=== PATIENT | female | born 1940 | race Caucasian/White ===

== ENCOUNTER 2024-02-09 20:03 | Inpatient (IN) | payer OTHER, BC ==
[2024-02-09 20:25] VITALS: BMI 22.2
[2024-02-09] MEDS ORDERED: ONDANSETRON 4 MG/2 ML VIAL ONE (20:52)
[2024-02-09] MEDS: ONDANSETRON 4 MG/2 ML VIAL IVPUSH ONE (21:08)
[2024-02-09 21:12] LABS: BASO % 0.5 % (0-2.0); EOS % 1.3 % (0-4.5); HEMATOCRIT 41.8 % (32.4-45.2); LYMPH % 9.8 % (8-40); MCH 28.8 pg (25.7-33.7); MCHC 33.4 g/dl (32.0-36.0); MEAN CELL VOLUME 86.4 fl (80-96); MEAN PLT VOLUME 8.6 fl (7.5-11.1); MONO % 7.6 % (3.8-10.2); NEUT % 80.8 % (42.8-82.8); PLATELET COUNT 208 10^3/uL (134-434); RBC 4.84 M/mm3 (3.60-5.2); RDW 15.4 % (11.6-15.6)
[2024-02-09 21:58] LABS: POTASSIUM 3.4 mmol/L (3.5-5.1)
[2024-02-09 22:01] LABS: CALCIUM 9.1 mg/dL (8.5-10.1)
[2024-02-09 22:02] LABS: ALBUMIN 3.8 g/dl (3.4-5.0); BLOOD UREA NITROGEN 18.1 mg/dL (7-18); MAGNESIUM 1.9 mg/dL (1.8-2.4)
[2024-02-09 22:05] LABS: CREATININE 0.8 mg/dL (0.55-1.3)
[2024-02-09 22:06] LABS: BILIRUBIN,TOTAL 1.9 mg/dL (0.2-1)
[2024-02-09 23:36] LABS: EPI CELLS 5 /uL (0-25.1); HYALINE CASTS 0 /uL (0-3.1); URINE APPEARANCE CLEAR; URINE BACTERIA 27 /uL (0-1359); URINE BILIRUBIN NEGATIVE (NEGATIVE); URINE COLOR YELLOW; URINE GLUCOSE (UA) NEGATIVE (NEGATIVE); URINE KETONE NEGATIVE (NEGATIVE); URINE LEUK ESTERASE NEGATIVE (NEGATIVE); URINE NITRITE NEGATIVE (NEGATIVE); URINE PROTEIN 2+ (NEGATIVE); URINE RBC 10 /uL (0-23.9); URINE UROBILINOGEN 0.2 mg/dL (0.2-1.0); URINE WBC 3 /uL (0-25.8)
[2024-02-09] MEDS: SODIUM CHLORIDE 0.9% 500 ML INFUS.BAG IV ONE (23:38)
[2024-02-10] MEDS ORDERED: POTASSIUM CHLORIDE ORAL LIQUID 20 MEQ/15 ML ONE (00:06)
[2024-02-10] MEDS: POTASSIUM CHLORIDE ORAL LIQUID 20 MEQ/15 ML PO ONE (00:19)
[2024-02-10] MEDS: DEXTROSE 5%-WATER - 1,000 ML IV SCH (03:10)
[2024-02-10 06:18] LABS: BASO % 0.2 % (0-2.0); EOS % 0.3 % (0-4.5); HEMATOCRIT 39.6 % (32.4-45.2); HEMOGLOBIN 13.1 GM/dL (10.7-15.3); LYMPH % 10.4 % (8-40); MCH 28.7 pg (25.7-33.7); MCHC 33.1 g/dl (32.0-36.0); MEAN CELL VOLUME 86.9 fl (80-96); MEAN PLT VOLUME 8.7 fl (7.5-11.1); MONO % 9.5 % (3.8-10.2); NEUT % 79.6 % (42.8-82.8); PLATELET COUNT 192 10^3/uL (134-434); RBC 4.56 M/mm3 (3.60-5.2); RDW 15.4 % (11.6-15.6); WHITE BLOOD COUNT 6.1 K/mm3 (4.0-10.0)
[2024-02-10 06:40] LABS: POTASSIUM 3.9 mmol/L (3.5-5.1)
[2024-02-10 06:45] LABS: CALCIUM 8.2 mg/dL (8.5-10.1)
[2024-02-10 06:46] LABS: ALBUMIN 3.2 g/dl (3.4-5.0); BLOOD UREA NITROGEN 13.4 mg/dL (7-18)
[2024-02-10 06:49] LABS: CREATININE 0.7 mg/dL (0.55-1.3)
[2024-02-10 06:50] LABS: TOT PROT 6.2 g/dl (6.4-8.2)
[2024-02-10] MEDS: LOSARTAN POTASSIUM 50 MG TABLET PO SCH (10:05)
[2024-02-10] MEDS: EZETIMIBE 10 MG TABLET (FP) PO SCH (10:05)
[2024-02-10] MEDS: APIXABAN 5 MG TABLET PO SCH (10:05)
[2024-02-10] MEDS ORDERED: APIXABAN 5 MG TABLET ONE (10:07)
[2024-02-10] MEDS ORDERED: LOSARTAN POTASSIUM 50 MG TABLET ONE (10:08)
[2024-02-10] MEDS ORDERED: DEXTROSE 5%-NORMAL SALINE 1,000 ML IV SCH (13:15)
[2024-02-10] MEDS: DEXTROSE 5%-NORMAL SALINE 1,000 ML IV SCH (13:46)
[2024-02-10] MEDS: ONDANSETRON 4 MG/2 ML VIAL IVPUSH PRN (18:10)
[2024-02-10] MEDS: LABETALOL HCL 100 MG TABLET (FP) PO SCH (21:48)
[2024-02-10] MEDS: ATORVASTATIN CA 80 MG TABLET (FP) PO SCH (21:48)
[2024-02-11 07:58] LABS: POTASSIUM 3.4 mmol/L (3.5-5.1)
[2024-02-11 08:00] LABS: BLOOD UREA NITROGEN 10.6 mg/dL (7-18)
[2024-02-11 08:01] LABS: CALCIUM 8.3 mg/dL (8.5-10.1)
[2024-02-11 08:04] LABS: CREATININE 0.8 mg/dL (0.55-1.3)
[2024-02-11 08:05] LABS: TOT PROT 5.6 g/dl (6.4-8.2)
[2024-02-11] MEDS: POTASSIUM CHLORIDE ORAL LIQUID 20 MEQ/15 ML PO ONE (12:22)
[2024-02-11] MEDS: amLODIPine BESYLATE 10 MG TABLET (FP) PO ONE (18:37)
[2024-02-12 08:32] LABS: BLOOD UREA NITROGEN 12.9 mg/dL (7-18); CALCIUM 8.4 mg/dL (8.5-10.1)
[2024-02-12 08:33] LABS: ALBUMIN 3.2 g/dl (3.4-5.0)
[2024-02-12 08:35] LABS: CREATININE 0.8 mg/dL (0.55-1.3)
[2024-02-12 08:37] LABS: BILIRUBIN,TOTAL 1.7 mg/dL (0.2-1); TOT PROT 5.9 g/dl (6.4-8.2)
[2024-02-12 09:01] LABS: BASO % 0.3 % (0-2.0); EOS % 2.6 % (0-4.5); HEMOGLOBIN 13.1 GM/dL (10.7-15.3); LYMPH % 15.7 % (8-40); MCH 29.2 pg (25.7-33.7); MCHC 33.6 g/dl (32.0-36.0); MEAN CELL VOLUME 86.9 fl (80-96); MEAN PLT VOLUME 9.1 fl (7.5-11.1); MONO % 13.1 % (3.8-10.2); NEUT % 68.3 % (42.8-82.8); PLATELET COUNT 184 10^3/uL (134-434); RBC 4.48 M/mm3 (3.60-5.2); RDW 15.5 % (11.6-15.6); WHITE BLOOD COUNT 7.2 K/mm3 (4.0-10.0)
[2024-02-12] MEDS: amLODIPine BESYLATE 5 MG TABLET (FP) PO SCH (09:34)
[2024-02-12] MEDS ORDERED: amLODIPine BESYLATE 10 MG TABLET (FP) PO SCH (10:00)
[2024-02-12] MEDS: DOCUSATE SODIUM 100 MG CAPSULE (FP) PO PRN (23:13)
[2024-02-13] MEDS: POLYETHYLENE GLYCOL (HEALTHYLAX) 3350 17 GM PACKET PO SCH (18:05)
[2024-02-13] MEDS: LABETALOL HCL 100 MG TABLET (FP) PO SCH (20:07)
[2024-02-13] MEDS: SENNOSIDES 8.6MG TABLET (FP) PO ONE (22:45)
[2024-02-14] MEDS: VALSARTAN 160 MG TABLET PO SCH (09:47)
[2024-02-14] MEDS: NEBIVOLOL 5 MG TABLET (FP) PO SCH (09:47)
[2024-02-15 09:39] VITALS: BP 126/70; PULSE 88; RESP 18; TEMP 98.8
== END 2024-02-15 17:08 | disposition home or self-care (01) | DRG 641 ==
LOC: JER 20:03 → JERBED 02-10 02:47 → OBSVTOIN 02-10 11:16 → J4W 02-10 14:16
PROVIDERS: ADMIT Internal Medicine; ATTEND Internal Medicine
DX: E87.1 Hypo-osmolality and hyponatremia (principal); E03.9 Hypothyroidism, unspecified; I10 Essential (primary) hypertension; E11.9 Type 2 diabetes mellitus without complications; E78.5 Hyperlipidemia, unspecified; I48.91 Unspecified atrial fibrillation; E87.6 Hypokalemia; R11.2 Nausea with vomiting, unspecified; R35.0 Frequency of micturition; T50.2X5A Adverse effect of carbonic-anhydrase inhibitors, benzothiadiazides and other diuretics, initial encounter; Y92.89 Other specified places as the place of occurrence of the external cause
CPT/HCPCS: 0241U-QW; 36415; 70450-TC; 71045-TC-FY; 80053; 81003; 82024; 82308; 82436; 82533; 82962; 83735; 83930; 83935; 84133; 84300; 84439; 84443; 84484; 85025; 87086; 87899; 93005; 93010; 97116-GP; 97162-GP; 99285-25; G0378

== ENCOUNTER 2024-04-14 04:59 | Day surgery (SDC) | payer OTHER, BC ==
[2024-04-11 14:02] VITALS: BMI 23.7
[2024-04-14 09:58] VITALS: TEMP 97.3
[2024-04-14 10:21] VITALS: RESP 15
[2024-04-14 10:22] VITALS: BP 121/48; PULSE 64
== END 2024-04-14 10:22 | disposition home or self-care (01) ==
LOC: JASU-ENDO 04:59
PROVIDERS: ATTEND Internal Medicine Gastroenterology
PROC: 0DJD8ZZ Inspection of Lower Intestinal Tract, Via Natural or Artificial Opening Endoscopic (ICD-10-PCS; principal; 2024-04-14 09:00)
DX: Z12.11 Encounter for screening for malignant neoplasm of colon (principal); Z86.0100 Personal history of colon polyps, unspecified; I10 Essential (primary) hypertension